=== PATIENT | male | born 1955 | race American Indian/Alaskan Native ===

== ENCOUNTER 2016-06-24 12:28 | Emergency (ER) | payer OTHER ==
[2016-06-24 14:46] LABS: Basophils % (Auto) 0.7 % (0.0-1.8); Eosinophils % (Auto) 2.9 % (0.0-4.3); Hematocrit 43.7 % (35.5-45.6); Hemoglobin 14.3 gm/dl (11.8-15.2); Mean Corpuscular HGB Conc 33 % (32-34); Mean Corpuscular Hemoglobin 28 pg (28-32); Mean Corpuscular Volume 84 fl (84-94); Platelet Count 169 K/mm3 (140-440); Red Blood Count 5.18 M/mm3 (3.65-5.03); Red Cell Distribution Width 14.4 % (13.2-15.2); White Blood Count 6.1 K/mm3 (4.5-11.0)
[2016-06-24 14:59] LABS: Anion Gap 14 mmol/L; Blood Urea Nitrogen 10 mg/dL (9-20); Calcium 8.8 mg/dL (8.4-10.2); Carbon Dioxide 29 mmol/L (22-30); Chloride 97.7 mmol/L (98-107); Glucose 87 mg/dL (75-100); Potassium 3.8 mmol/L (3.6-5.0); Sodium 137 mmol/L (137-145)
--- NOTE | 2016-06-24 15:38 | XRay Report ---
CHEST TWO VIEWS: 06/24/16 CLINICAL: Shortness of breath. COMPARISON: None FINDINGS: Normal heart and pulmonary vasculature. The lungs are mildly hyperexpanded and hyperlucent. No airspace disease or pleural effusion. Degenerative change in the thoracic spine with anterior and lateral osteophytes. IMPRESSION: Mild COPD.No CHF or pneumonia.
--- NOTE | 2016-06-24 17:20 | Emergency Department Report ---
ED General Adult HPI - General Chief complaint: Dyspnea/Respdistress Stated complaint: RESPITORY ISSUES Time Seen by Provider: 06/24/16 16:51 Source: patient Mode of arrival: Ambulatory Limitations: No Limitations - History of Present Illness Initial comments: 61 y/o M presents w/ cc of "URI" like symtpoms. Pt states last week, pt noted myalgias, arthralgias, "sneezing", rhinorrhea, congestion. Went to urgent care on Wednesday, noted a fever of 101, and rx'd for albuterol, prednisone, azithromycin. Pt does feel like he is improving but is still "achy" all over, and feels like he needs a massage. Denies chest pain, pleuriy, hemoptysis, orthopnea. - Related Data Previous Rx's Medication Instructions Recorded Last Taken Type Promethazine [Phenergan] 25 mg PO Q6H PRN #20 tablet 09/18/13 Unknown Rx oxyCODONE /ACETAMINOPHEN [Percocet 2 tab PO Q6HR PRN #20 tablet 09/18/13 Unknown Rx 5/325] Cyclobenzaprine HCl [Flexeril 5 MG 5 mg PO Q8HR #15 tab 06/15/15 Unknown Rx TAB] Allergies Allergy/AdvReac Type Severity Reaction Status Date / Time No Known Allergies Allergy Unverified 09/18/13 10:04 ED Review of Systems ROS: Stated complaint: RESPITORY ISSUES Other details as noted in HPI Comment: All other systems reviewed and negative Constitutional: denies: chills, fever Eyes: denies: eye pain, eye discharge, vision change ENT: denies: ear pain, throat pain Respiratory: denies: cough, shortness of breath, wheezing Cardiovascular: denies: chest pain, palpitations Endocrine: no symptoms reported Gastrointestinal: denies: abdominal pain, nausea, diarrhea Genitourinary: denies: urgency, dysuria Musculoskeletal: denies: back pain, joint swelling, arthralgia Skin: denies: rash, lesions Neurological: denies: headache, weakness, paresthesias Psychiatric: denies: anxiety, depression Hematological/Lymphatic: denies: easy bleeding, easy bruising ED Past Medical Hx - Past Medical History Previous Medical History?: No Additional medical history: URI - Surgical History Past Surgical History?: Yes Additional Surgical History: Bladder surgery - Social History Smoking Status: Never Smoker Substance Use Type: Prescribed - Medications Home Medications: Home Medications Medication Instructions Recorded Confirmed Last Taken Type Promethazine [Phenergan] 25 mg PO Q6H PRN #20 tablet 09/18/13 Unknown Rx oxyCODONE /ACETAMINOPHEN [Percocet 2 tab PO Q6HR PRN #20 tablet 09/18/13 Unknown Rx 5/325] Cyclobenzaprine HCl [Flexeril 5 MG 5 mg PO Q8HR #15 tab 06/15/15 Unknown Rx TAB] ED Physical Exam - General Limitations: No Limitations General appearance: alert, in no apparent distress - Head Head exam: Present: atraumatic, normocephalic - Eye Eye exam: Present: normal appearance, PERRL - ENT ENT exam: Present: normal exam, normal orophraynx, mucous membranes moist - Neck Neck exam: Present: normal inspection - Respiratory Respiratory exam: Present: normal lung sounds bilaterally. Absent: respiratory distress - Cardiovascular Cardiovascular Exam: Present: regular rate, normal rhythm. Absent: systolic murmur, diastolic murmur, rubs, gallop - GI/Abdominal GI/Abdominal exam: Present: soft, normal bowel sounds. Absent: tenderness, guarding, rebound - Rectal Rectal exam: Present: deferred - Extremities Exam Extremities exam: Present: normal inspection, full ROM - Back Exam Back exam: Present: normal inspection - Neurological Exam Neurological exam: Present: alert, altered, oriented X3, CN II-XII intact - Psychiatric Psychiatric exam: Present: normal affect, normal mood - Skin Skin exam: Present: warm, dry, intact, normal color. Absent: rash ED Course Vital Signs 06/24/16 14:06 Temperature 97.6 F Pulse Rate 60 Respiratory 18 Rate Blood Pressure 138/90 O2 Sat by Pulse 100 Oximetry ED Medical Decision Making - Lab Data Result diagrams: 06/24/16 14:27 06/24/16 14:27 - EKG Data 06/24/16 17:24 Sinus lexi 52, lad, no significant stt changes, qrs 70, qtc 399 - Radiology Data Radiology results: report reviewed, image reviewed - Medical Decision Making Suspect resolving influenza, pt no longer febrile, CXR as reviewed byme as well as report ntoes no acute findings. Doubt PE/Pneumonia/Dissection/ACS, as symptoms suggest more of a URI. Will give pt discharge precautions, f/u with PCP on Wednesday/Wednesday, return if any new concerning symptoms. Exam unremarkable, no pleurisy/hemoptysis/severe chest pain to suggest ACS/PE/ Dissection, given hx of fever on Wednesday, likely viral/flu given CXR unremarkable , no leukocytosis. ED course: unremarakble. Pt given verbal discharge instructions and indications for return Critical care attestation.: If time is entered above; I have spent that time in minutes in the direct care of this critically ill patient, excluding procedure time. ED Disposition Clinical Impression: Upper respiratory infection Qualifiers: URI type: unspecified viral URI Qualified Code(s): J06.9 - Acute upper respiratory infection, unspecified; B97.89 - Other viral agents as the cause of diseases classified elsewhere Disposition: DISCHARGED TO HOME OR SELFCARE Is pt being admited?: No Does the pt Need Aspirin: No Condition: Good Instructions: Upper Respiratory Infection (ED) Additional Instructions: Please follow up with primary care doctor in 1-2 days, return if you have any new concerning symptoms Referrals: PRIMARY CAREMD [Primary Care Provider] - 3-5 Days Forms: Work/School Release Form(ED) Time of Disposition: 17:26
[2016-06-24 18:47] VITALS: BP 140/88
== END 2016-06-24 18:50 | disposition home or self-care (01) ==
LOC: ED 12:28
DX: J06.9 Acute upper respiratory infection, unspecified (principal); B97.89 Other viral agents as the cause of diseases classified elsewhere
CPT/HCPCS: 36415; 71020; 80048; 84484; 85025; 93005; 93010; 99284

== ENCOUNTER 2018-12-19 12:38 | Outpatient (CLI) | payer BC ==
--- NOTE | 2018-12-19 13:36 | XRay Report ---
BILATERAL KNEES, 3 VIEWS INDICATION: KNEE PAIN. COMPARISON: None. IMPRESSION: No acute osseous or soft tissue abnormality. Mild medial compartment joint space narr owing and mild retropatellar spurring is identified in both knees. No bone lesion or significant join t effusion is identified. Signer Name: Otf Roberts Jr, MD Signed: 12/19/2018 1:31 PM Workstation Name: [id number]
== END 2018-12-19 12:39 | disposition home or self-care (01) ==
LOC: XRAY 12:38
PROVIDERS: ATTEND Urology
DX: M76.892 Other specified enthesopathies of left lower limb, excluding foot (principal); M76.891 Other specified enthesopathies of right lower limb, excluding foot